=== PATIENT | male | born 1960 | race Caucasian/White ===

== ENCOUNTER → 2019-10-13 | Outpatient (CLI) | payer OTHER ==
[~2019-10-13] MED LIST: B CO1TAB14 PO; CHOL5000 PO; FENO160T PO; FINA5TAB4 PO; LEVO75TA5 PO; MELA1TAB6 PO; MULT1TAB60 PO; ROSU5TAB PO; UBID100C24 PO; ZOLP10TA PO
[2019-10-13 10:16] LABS: BASOPHILS # (AUTO) 0.03 x10^3/uL (0-0.1); BASOPHILS % (AUTO) 1 % (0-1); EOSINOPHILS # (AUTO) 0.04 x10^3/uL (0-0.4); EOSINOPHILS % (AUTO) 1 % (1-7); LYMPHOCYTES # (AUTO) 1.55 x10^3/uL (1-3.4); LYMPHOCYTES % (AUTO) 30 % (22-44); MD NO; MEAN CORPUSCULAR HGB CONC 33.3 g/dL (33.2-36.2); MEAN CORPUSCULAR VOLUME 93.1 fL (81-97); MONOCYTES # (AUTO) 0.46 x10^3/uL (0.2-0.8); MONOCYTES % (AUTO) 9 % (2-9); NEUTROPHILS # (AUTO) 3.13 x10^3/uL (1.8-6.8); NEUTROPHILS % (AUTO) 60 % (42-75); PLATELET COUNT 188 x10^3/uL (130-400); RED BLOOD COUNT 5.15 x10^6/uL (4.38-5.82); RED CELL DISTRIBUTION WIDTH 13.1 % (9.4-14.8)
[2019-10-13 10:23] LABS: INTERNATIONAL NORMALIZED RATIO 1.02 (0.93-1.1); PROTHROMBIN TIME 10.7 Seconds (9.6-11.5)
[2019-10-13 10:24] LABS: ALBUMIN 4.4 g/dL (3.4-5.0); ANION GAP 4 mmol/L (5-15); CALCIUM 9.1 mg/dL (8.5-10.1); CHLORIDE 106 mmol/L (98-107)
[2019-10-13 10:29] LABS: ALANINE AMINOTRANSFERASE 45 U/L (12-78); ALKALINE PHOSPHATASE 58 U/L (45-117); BILIRUBIN,TOTAL 0.5 mg/dL (0.2-1.0); CREATININE 1.31 mg/dL (0.7-1.3); TOTAL PROTEIN 7.7 g/dL (6.4-8.2)
== END | disposition home or self-care (01) ==
LOC: STAR 09:13
PROVIDERS: ATTEND Orthopaedic Surgery
DX: Z01.818 Encounter for other preprocedural examination (principal); M16.12 Unilateral primary osteoarthritis, left hip
CPT/HCPCS: 36415; 80053; 83036; 85025; 85610; 85730; 87081; 93005

== ENCOUNTER 2019-10-27 08:04 | Inpatient (IN) | payer OTHER ==
[2019-10-27] VITALS (7 sets, daily range): BP systolic 96–129; BP diastolic 60–84
[~2019-10-27] VITALS: Ht 175.3 cm; Wt 81.0 kg
[~2019-10-27 08:04] MED LIST changes: +EPINEPHRINE 1 MG/ML, 1ML ONE; +KETOROLAC 60 MG/2 ML ONE; +ROPIvacaine/PF 0.5%, 20 ML ONE; +SODIUM CHLORIDE 0.9% 50 ML ONE; +TRANEXAMIC ACID 100 MG/ML, 10ML ONE; +VANCOMYCIN 1,000 MG ONE
[2019-10-27] MEDS ORDERED: OXYcodone IR 5MG TABLET PO PRN (08:30)
[2019-10-27] MEDS ORDERED: DIPHENHYDRAMINE 25 MG CAPSULE PO PRN (08:30)
[2019-10-27] MEDS ORDERED: ZOLPIDEM 5MG TABLET PO PRN ×2 (08:30)
[2019-10-27] MEDS ORDERED: HYDROcodone/APAP 5/325 TABLET PO PRN (08:30)
[2019-10-27] MEDS ORDERED: SENNA/DOCUSATE TABLET PO PRN (08:30)
[2019-10-27] MEDS ORDERED: ONDANSETRON 2MG/ML, 2ML IV PRN (08:30)
[2019-10-27] MEDS ORDERED: SCOPOLAMINE PATCH, 1.5MG PATCH.TD72 TD ONE (08:30)
[2019-10-27] MEDS ORDERED: MAGNESIUM HYDROXIDE 8%, 30ML UDC PO PRN (08:30)
[2019-10-27] MEDS ORDERED: BISACODYL 10 MG SUPP PR PRN (08:30)
[2019-10-27] MEDS ORDERED: ONDANSETRON 4 MG TABLET PO PRN (08:30)
[2019-10-27] MEDS ORDERED: LACTATED RINGERS 1,000 ML IV SCH (08:42)
[2019-10-27] MEDS ORDERED: FENTANYL PF 250 MCG/5ML ONE (08:56)
[2019-10-27] MEDS ORDERED: MIDAZOLAM 1 MG/ML, 2ML ONE (08:56)
[2019-10-27] MEDS ORDERED: GABAPENTIN 300 MG CAPSULE PO ONE (09:00)
[2019-10-27] MEDS ORDERED: ACETAMINOPHEN 500 MG TABLET PO ONE (09:00)
[2019-10-27] MEDS ORDERED: FINASTERIDE 5 MG TABLET PO SCH ×2 (09:00→14:33)
[2019-10-27] MEDS ORDERED: ROCURONIUM 10MG/ML,5ML ONE (10:54)
[2019-10-27] MEDS ORDERED: GLYCOPYRROLATE 0.2MG/1ML, 5ML ONE (10:54)
[2019-10-27] MEDS ORDERED: ONDANSETRON 2MG/ML, 2ML ONE (10:54)
[2019-10-27] MEDS ORDERED: PROPOFOL 10 MG/ML, 20ML ONE (10:54)
[2019-10-27] MEDS ORDERED: CEFAZOLIN 1,000 MG ONE (10:54)
[2019-10-27] MEDS ORDERED: DEXAMETHASONE 4 MG/ML, 1ML ONE (10:54)
[2019-10-27] MEDS ORDERED: NEOSTIGMINE 1 MG/ML, 10ML ONE (10:54)
[2019-10-27] MEDS: MEPERIDINE/PF 25MG/ML,1ML IVPush PRN ×3 (11:12→11:45)
[2019-10-27] MEDS ORDERED: MEPERIDINE/PF 25MG/ML,1ML ONE ×2 (11:13→11:24)
[2019-10-27] MEDS ORDERED: FENTANYL PF 100 MCG/2ML ONE (11:24)
[2019-10-27] MEDS: FENTANYL PF 100 MCG/2ML IV PRN ×3 (11:24→11:44)
[2019-10-27] MEDS ORDERED: OXYcodone 5 MG/5 ML ORAL.SOL UDC ONE (11:24)
[2019-10-27] MEDS ORDERED: OXYcodone 5 MG/5 ML ORAL.SOL UDC PO PRN (11:30)
[2019-10-27] MEDS ORDERED: PROMETHAZINE 25 MG/ML, 1ML IV PRN (11:30)
[2019-10-27] MEDS ORDERED: METOPROLOL 1 MG/ML, 5ML IV PRN (11:30)
[2019-10-27] MEDS ORDERED: MIDAZOLAM 1 MG/ML, 2ML IV PRN (11:30)
[2019-10-27] MEDS ORDERED: HYDROmorphone 2 MG/ML, 1ML IVPush PRN (11:30)
[2019-10-27] MEDS ORDERED: hydrALAzine 20 MG/ML, 1ML IV PRN (11:30)
[2019-10-27] MEDS: NS + 20MEQ KCL 1,000 ML IV SCH (13:16)
[2019-10-27] MEDS ORDERED: MELATONIN 3 MG TABLET PO PRN (15:00)
[2019-10-27] MEDS: ASPIRIN 81 MG TABLET EC PO SCH (17:52)
[2019-10-27] MEDS: DOCUSATE 100 MG CAPSULE PO SCH ×2 (17:52→19:49)
[2019-10-27] MEDS: CEFAZOLIN PMX 2GM/50ML 50 ML IVPB SCH (18:30)
[2019-10-27] MEDS ORDERED: ATORVASTATIN 40 MG TABLET PO SCH (21:00)
[2019-10-28] MEDS: NS + 20MEQ KCL 1,000 ML IV SCH (01:46)
[2019-10-28 03:55] VITALS: BP 99/62
[2019-10-28] MEDS: CEFAZOLIN PMX 2GM/50ML 50 ML IVPB SCH (03:58)
[2019-10-28] MEDS: ASPIRIN 81 MG TABLET EC PO SCH (05:55)
[2019-10-28] MEDS: ACETAMINOPHEN 650 MG/20.3 ML UDC PO PRN ×2 (05:55→10:01)
[2019-10-28] MEDS ORDERED: LEVOTHYROXINE 75 MCG TABLET PO SCH (06:00)
[2019-10-28] MEDS ORDERED: DEXAMETHASONE 4 MG/ML, 1ML IVPush SCH (06:00)
[2019-10-28 07:37] VITALS: BP 90/54
[2019-10-28] MEDS ORDERED: TAMSULOSIN 0.4 MG CAP.ER.24H PO ONE (08:00)
[2019-10-28] MEDS ORDERED: OXYC5CAP2 PO (08:28)
[2019-10-28] MEDS ORDERED: TRAM50TA2 PO (08:29)
[2019-10-28] MEDS ORDERED: MELO7.5T31 PO (08:32)
[2019-10-28] MEDS: DOCUSATE 100 MG CAPSULE PO SCH (09:00)
[2019-10-28 09:08] VITALS: BP 98/62
[2019-10-28] MEDS ORDERED: FLU VACC QS2019-20 36MOS UP/PF 0.5 ML IM-VACC ONE (09:30)
== END 2019-10-28 10:30 | disposition home or self-care (01) | DRG 470 ==
LOC: ORIP 08:04 → 4NE 12:22 → DCLOUNGE 10-28 10:18
PROVIDERS: ADMIT Orthopaedic Surgery; ATTEND Orthopaedic Surgery
PROC: 0SRB06A Replacement of Left Hip Joint with Oxidized Zirconium on Polyethylene Synthetic Substitute, Uncemented, Open Approach (ICD-10-PCS; principal; 2019-10-27 10:00)
DX: M16.12 Unilateral primary osteoarthritis, left hip (principal); G47.33 Obstructive sleep apnea (adult) (pediatric); I10 Essential (primary) hypertension; E78.5 Hyperlipidemia, unspecified; K21.9 Gastro-esophageal reflux disease without esophagitis; N40.1 Benign prostatic hyperplasia with lower urinary tract symptoms; R33.8 Other retention of urine
CPT/HCPCS: 36415; 72170; 76000; 85014; 85018; 90686; C1713; G0378; J0171; J0690; J1100; J1885; J2250; J2405; J2704; J2710; J2795; J3010; J3370; C1776; J2175; J7120